=== PATIENT | female | born 1965 | race Caucasian/White ===

== ENCOUNTER 2017-04-15 22:35 | Emergency (ER) | payer OTHER | END 2017-04-16 01:43 | disposition home or self-care (01) | LOC: ER1 22:35 | DX: S91.201A Unspecified open wound of right great toe with damage to nail, initial encounter (principal); Z23 Encounter for immunization; X50.9XXA Other and unspecified overexertion or strenuous movements or postures, initial encounter; Y92.009 Unspecified place in unspecified non-institutional (private) residence as the place of occurrence of the external cause | CPT/HCPCS: 12001; 90471; 90715; 99283 ==